=== PATIENT | male | born 1940 | race Caucasian/White ===

== ENCOUNTER 2017-09-15 19:56 | Inpatient (IN) | payer MEDICARE, OTHER ==
[2017-09-15] MEDS ORDERED: ACETAMINOPHEN 325 MG TAB PO (22:30)
[2017-09-15] MEDS ORDERED: NYSTATIN SUSP 5 ML CUP PO (22:30)
[2017-09-15] MEDS ORDERED: ONDANSETRON 4 MG INJ IV (22:30)
[2017-09-15] MEDS ORDERED: GENTAMICIN IV PER PHARMACY XX (22:30)
[2017-09-15] MEDS ORDERED: MAGNESIUM HYDROXIDE 30ML CUP PO (22:30)
[2017-09-15] MEDS ORDERED: GLUCAGON 1 MG INJ IM (22:30)
[2017-09-15] MEDS ORDERED: GLUCOSE GEL 15 GRAM TUBE BUCCAL (22:30)
[2017-09-15] MEDS ORDERED: DOCUSATE SODIUM 100 MG CAP PO (22:30)
[2017-09-15] MEDS ORDERED: DEXTROSE 50% 50 ML SYRINGE IV ×2 (22:30)
[2017-09-15] MEDS ORDERED: ALBUTEROL/IPRATROPIUM (NEB) 3 ML AMP HHN (22:30)
[2017-09-15] MEDS ORDERED: ZOLPIDEM 5 MG TAB PO (22:30)
[2017-09-15] MEDS ORDERED: GLUCOSE GEL 15 GRAM TUBE PO ×2 (22:30)
[2017-09-15] MEDS: SODIUM HYPOCHLORITE 0.125% 473 ML BTL IRR (23:20)
[2017-09-15] MEDS: FERROUS SULFATE (EC) 325 MG TAB PO (23:21)
[2017-09-15] MEDS: FOLIC ACID 1 MG TAB PO (23:21)
[2017-09-15] MEDS: DOCUSATE SODIUM 100 MG CAP PO (23:21)
[2017-09-15] MEDS: TAMSULOSIN (SR) 0.4 MG CAP PO (23:21)
[2017-09-15] MEDS: INSULIN GLARGINE [LANtus] 3 ML PEN SC (23:25)
[2017-09-15] MEDS: Insulin NOVOLOG SS MILD Algorithm (SS with meals and bedtime) SC (23:26)
[2017-09-15] MEDS ORDERED: BISACODYL 10 MG SUPP PR (23:30)
[2017-09-15] MEDS ORDERED: LACTULOSE 30ML CUP PO (23:30)
[2017-09-15] MEDS: TRIAMCINOLONE ACET 0.1% 15 GM CR TOP (23:33)
[2017-09-15] MEDS: BETAMETHASONE/CLOTRIMAZOLE 15 GM CR TOP (23:34)
[2017-09-16 01:40] LABS: ADD UMIC YES; UR ASCORBIC ACID 40 mg/dL (NEGATIVE); UR BACTERIA MODERATE /HPF (NONE SEEN); UR BILIRUBIN (Dip) NEGATIVE (NEGATIVE); UR BLOOD (Dip) NEGATIVE (NEGATIVE); UR CLARITY SLIGHTLY CLOUDY (CLEAR); UR COLOR YELLOW (YELLOW); UR GLUCOSE (Dip) NEGATIVE (NEGATIVE); UR KETONES (Dip) NEGATIVE (NEGATIVE); UR LEUKOCYTE ESTERASE (Dip) 3+ Leu/ul (NEGATIVE); UR MUCUS FEW /HPF (NONE SEEN); UR NITRITE (Dip) NEGATIVE (NEGATIVE); UR RBC 3 /HPF (0-5); UR SPECIFIC GRAVITY (Dip) 1.013 (1.003-1.030); UR SQUAMOUS EPITHELIAL CELL FEW /HPF (FEW); UR TOTAL PROTEIN (Dip) NEGATIVE (NEGATIVE); UR UROBILINOGEN (Dip) NEGATIVE (NEGATIVE); UR WBC 40 /HPF (0-5)
[2017-09-16] MEDS: ALBUTEROL/IPRATROPIUM (NEB) 3 ML AMP HHN ×4 (02:00→20:15)
[2017-09-16] MEDS: ACCUCHECK AT 2AM (Patients on SS coverage) XX (02:15)
[2017-09-16] MEDS: LEVOTHYROXINE 75 MCG TAB PO (06:32)
[2017-09-16] MEDS: PANTOPRAZOLE (EC) 40 MG TAB PO (06:32)
[2017-09-16 08:02] LABS: ADD MAN DIFF? NO
[2017-09-16 08:07] LABS: WHITE BLOOD COUNT 14.6 10^3/ul (4.8-10.8)
[2017-09-16 08:07] LABS: BASOPHIL # 0.1 10^3/ul (0.0-0.1); BASOPHILS % 0.4 % (0.0-2.0); EOSINOPHILS # 0.8 10^3/ul (0.0-0.5); EOSINOPHILS % 5.2 % (0.0-7.0); HEMATOCRIT 26.5 % (42.0-52.0); HEMOGLOBIN 8.4 g/dl (14.0-18.0); LYMPHOCYTES # 1.2 10^3/ul (0.8-2.9); LYMPHOCYTES % 7.9 % (15.0-51.0); MEAN CORPUSCULAR HEMOGLOBIN 28.5 pg (29.0-33.0); MEAN CORPUSCULAR HGB CONC 31.7 g/dl (32.0-37.0); MEAN CORPUSCULAR VOLUME 89.8 fl (82.0-101.0); MEAN PLATELET VOLUME 11.4 fl (7.4-10.4); MONOCYTE # 1.5 10^3/ul (0.3-0.9); NEUTROPHIL # 11.1 10^3/ul (1.6-7.5); NEUTROPHILS % 75.5 % (39.0-77.0); PLATELET COUNT 296 10^3/UL (140-415); RED BLOOD COUNT 2.95 10^6/ul (4.70-6.10)
[2017-09-16] MEDS: Insulin NOVOLOG SS MILD Algorithm (SS with meals and bedtime) SC ×4 (08:27→21:00)
[2017-09-16 08:28] LABS: ALANINE AMINOTRANSFERASE 50 IU/L (13-69); ALBUMIN 3.1 g/dl (3.3-4.9); ALBUMIN/GLOBULIN RATIO 0.81; ALKALINE PHOSPHATASE 115 IU/L (42-121); ANION GAP 13 (8-16); ASPARTATE AMINO TRANSFERASE 26 IU/L (15-46); BLOOD UREA NITROGEN 71 mg/dl (7-20); CALCIUM 10.1 mg/dl (8.4-10.2); CARBON DIOXIDE 25 mmol/L (21-31); CHLORIDE 105 mmol/L (97-110); CREATININE 2.12 mg/dl (0.61-1.24); GLUCOSE 157 mg/dl (70-220); POTASSIUM 4.5 mmol/L (3.5-5.1); SODIUM 138 mmol/L (135-144); TOTAL PROTEIN 6.9 g/dl (6.1-8.1)
[2017-09-16] MEDS: INSULIN ASPART [NOVOLOG] 3 ML PEN SC ×3 (08:28→17:35)
[2017-09-16] MEDS ORDERED: APIXABAN 5 MG TABLET PO (09:00)
[2017-09-16] MEDS: TRIAMCINOLONE ACET 0.1% 15 GM CR TOP ×2 (09:11→21:00)
[2017-09-16] MEDS: BETAMETHASONE/CLOTRIMAZOLE 15 GM CR TOP ×2 (09:11→22:20)
[2017-09-16] MEDS: MUPIROCIN 2% 22 GM OINT TOP (09:11)
[2017-09-16] MEDS: COLLAGENASE 30 GM TUBE TOP ×2 (09:12→22:20)
[2017-09-16] MEDS: MULTIVITAMINS THERAPEUTIC TAB PO (09:12)
[2017-09-16] MEDS: LINAGLIPTIN 5 MG TABLET PO (09:12)
[2017-09-16] MEDS: TAMSULOSIN (SR) 0.4 MG CAP PO ×2 (09:13→21:46)
[2017-09-16] MEDS: FERROUS SULFATE (EC) 325 MG TAB PO ×2 (09:13→21:43)
[2017-09-16] MEDS: HYDROCODONE/APAP (5/325) TAB PO (09:13)
[2017-09-16] MEDS: FINASTERIDE 5 MG TAB PO (09:13)
[2017-09-16] MEDS: DOCUSATE SODIUM 100 MG CAP PO ×2 (09:13→21:43)
[2017-09-16] MEDS: CITALOPRAM 20 MG TAB PO (09:13)
[2017-09-16] MEDS: ASCORBIC ACID 500 MG TAB PO (09:13)
[2017-09-16] MEDS: CLOPIDOGREL 75 MG TAB PO (09:13)
[2017-09-16] MEDS: CALAMINE 170 ML LOT TOP (09:14)
[2017-09-16] MEDS: SODIUM HYPOCHLORITE 0.125% 473 ML BTL IRR ×3 (09:20→22:21)
[2017-09-16] MEDS: DAPTOMYCIN 500 MG in SOD CHLORIDE 0.9% 100 ML IVPB (20:11)
[2017-09-16] MEDS: INSULIN GLARGINE [LANtus] 3 ML PEN SC (21:15)
[2017-09-16] MEDS: SENNA TAB PO (21:43)
[2017-09-16] MEDS: FOLIC ACID 1 MG TAB PO (21:43)
[2017-09-17] MEDS: ALBUTEROL/IPRATROPIUM (NEB) 3 ML AMP HHN ×4 (01:47→19:49)
[2017-09-17] MEDS: ACCUCHECK AT 2AM (Patients on SS coverage) XX (01:49)
[2017-09-17] MEDS: GENTAMICIN 80 MG/NS (PMX) 50 ML IVPB (03:18)
[2017-09-17] MEDS: PANTOPRAZOLE (EC) 40 MG TAB PO (06:38)
[2017-09-17] MEDS: LEVOTHYROXINE 75 MCG TAB PO (06:38)
[2017-09-17] MEDS: Insulin NOVOLOG SS MILD Algorithm (SS with meals and bedtime) SC ×4 (07:05→21:11)
[2017-09-17 07:32] LABS: ADD MAN DIFF? NO
[2017-09-17 07:40] LABS: WHITE BLOOD COUNT 14.9 10^3/ul (4.8-10.8)
[2017-09-17 07:40] LABS: ABNORMAL IP MESSAGE 1; BASOPHILS % 0.3 % (0.0-2.0); EOSINOPHILS # 0.6 10^3/ul (0.0-0.5); HEMATOCRIT 24.6 % (42.0-52.0); HEMOGLOBIN 7.8 g/dl (14.0-18.0); LYMPHOCYTES # 1.1 10^3/ul (0.8-2.9); LYMPHOCYTES % 7.6 % (15.0-51.0); MEAN CORPUSCULAR HEMOGLOBIN 28.4 pg (29.0-33.0); MEAN CORPUSCULAR HGB CONC 31.7 g/dl (32.0-37.0); MEAN CORPUSCULAR VOLUME 89.5 fl (82.0-101.0); MEAN PLATELET VOLUME 11.3 fl (7.4-10.4); MONOCYTE # 1.6 10^3/ul (0.3-0.9); MONOCYTES % 10.4 % (0.0-11.0); NEUTROPHIL # 11.5 10^3/ul (1.6-7.5); PLATELET COUNT 263 10^3/UL (140-415); POSITIVE DIFF @See below; RED BLOOD COUNT 2.75 10^6/ul (4.70-6.10); RED CELL DISTRIBUTION WIDTH 15.9 % (11.5-14.5)
[2017-09-17 08:05] LABS: ANION GAP 14 (8-16); BLOOD UREA NITROGEN 74 mg/dl (7-20); CALCIUM 9.5 mg/dl (8.4-10.2); CARBON DIOXIDE 23 mmol/L (21-31); CHLORIDE 105 mmol/L (97-110); CREATININE 2.08 mg/dl (0.61-1.24); GLUCOSE 121 mg/dl (70-220); SODIUM 137 mmol/L (135-144)
[2017-09-17 08:09] LABS: CREATINE KINASE 42 IU/L (23-200)
[2017-09-17 08:13] LABS: PHOSPHORUS 4.4 mg/dl (2.5-4.9)
[2017-09-17 08:13] LABS: MAGNESIUM 1.9 mg/dl (1.7-2.5)
[2017-09-17] MEDS: INSULIN ASPART [NOVOLOG] 3 ML PEN SC ×3 (08:45→17:58)
[2017-09-17] MEDS: SODIUM HYPOCHLORITE 0.125% 473 ML BTL IRR ×3 (09:32→21:13)
[2017-09-17] MEDS: DOCUSATE SODIUM 100 MG CAP PO ×2 (09:33→21:06)
[2017-09-17] MEDS: CITALOPRAM 20 MG TAB PO (09:33)
[2017-09-17] MEDS: LINAGLIPTIN 5 MG TABLET PO (09:33)
[2017-09-17] MEDS: CLOPIDOGREL 75 MG TAB PO (09:33)
[2017-09-17] MEDS: FINASTERIDE 5 MG TAB PO (09:34)
[2017-09-17] MEDS: FERROUS SULFATE (EC) 325 MG TAB PO ×2 (09:34→21:06)
[2017-09-17] MEDS: TAMSULOSIN (SR) 0.4 MG CAP PO ×2 (09:34→21:06)
[2017-09-17] MEDS: ASCORBIC ACID 500 MG TAB PO (09:34)
[2017-09-17] MEDS: MULTIVITAMINS THERAPEUTIC TAB PO (09:34)
[2017-09-17] MEDS: HYDROCODONE/APAP (5/325) TAB PO (09:35)
[2017-09-17] MEDS: TRIAMCINOLONE ACET 0.1% 15 GM CR TOP ×2 (09:35→21:12)
[2017-09-17] MEDS: BETAMETHASONE/CLOTRIMAZOLE 15 GM CR TOP ×2 (09:35→21:12)
[2017-09-17] MEDS: MUPIROCIN 2% 22 GM OINT TOP (09:35)
[2017-09-17] MEDS: COLLAGENASE 30 GM TUBE TOP ×2 (09:35→21:11)
[2017-09-17] MEDS: CALAMINE 170 ML LOT TOP (09:36)
[2017-09-17 10:28] LABS: IRON 15 ug/dl (35-150)
[2017-09-17 10:43] LABS: % IRON SATURATION 8 % SAT (22-52); TOTAL IRON BINDING CAPACITY 187 ug/dl (241-421)
[2017-09-17] MEDS: EPOETIN ALFA (NESRD) 3,000 UNITS/ML VIAL SC (10:50)
[2017-09-17] MEDS: GENTAMICIN 0.1% 15 GM OINT TOP ×2 (17:30→21:12)
[2017-09-17] MEDS: SENNA TAB PO (21:05)
[2017-09-17] MEDS: FOLIC ACID 1 MG TAB PO (21:06)
[2017-09-17] MEDS: L ACIDOPHIL/B LACTIS/B LONGUM CAPSULE PO (21:07)
[2017-09-17] MEDS: INSULIN GLARGINE [LANtus] 3 ML PEN SC (21:10)
[2017-09-17] MEDS: MEROPENEM 500MG/50 ML (PMX) 50 ML IVPB (21:11)
[2017-09-18] MEDS: ALBUTEROL/IPRATROPIUM (NEB) 3 ML AMP HHN ×4 (01:31→20:38)
[2017-09-18] MEDS: ACCUCHECK AT 2AM (Patients on SS coverage) XX (02:48)
[2017-09-18] MEDS: PANTOPRAZOLE (EC) 40 MG TAB PO (06:19)
[2017-09-18] MEDS: LEVOTHYROXINE 75 MCG TAB PO (06:19)
[2017-09-18] MEDS: Insulin NOVOLOG SS MILD Algorithm (SS with meals and bedtime) SC ×4 (07:05→21:00)
[2017-09-18] MEDS: INSULIN ASPART [NOVOLOG] 3 ML PEN SC ×3 (08:23→17:35)
[2017-09-18] MEDS: CALAMINE 170 ML LOT TOP (09:00)
[2017-09-18] MEDS: INFLUENZA VIRUS VACCINE 0.5 ML (DISPENSING) IM* (09:00)
[2017-09-18] MEDS: SODIUM HYPOCHLORITE 0.125% 473 ML BTL IRR ×3 (09:00→21:28)
[2017-09-18] MEDS: FERROUS SULFATE (EC) 325 MG TAB PO ×2 (10:11→21:07)
[2017-09-18] MEDS: CITALOPRAM 20 MG TAB PO (10:12)
[2017-09-18] MEDS: CLOPIDOGREL 75 MG TAB PO (10:12)
[2017-09-18] MEDS: MULTIVITAMINS THERAPEUTIC TAB PO (10:13)
[2017-09-18] MEDS: DOCUSATE SODIUM 100 MG CAP PO ×2 (10:13→21:07)
[2017-09-18] MEDS: L ACIDOPHIL/B LACTIS/B LONGUM CAPSULE PO ×2 (10:13→21:07)
[2017-09-18] MEDS: FINASTERIDE 5 MG TAB PO (10:13)
[2017-09-18] MEDS: LINAGLIPTIN 5 MG TABLET PO (10:14)
[2017-09-18] MEDS: MUPIROCIN 2% 22 GM OINT TOP (10:14)
[2017-09-18] MEDS: BETAMETHASONE/CLOTRIMAZOLE 15 GM CR TOP ×2 (10:14→21:00)
[2017-09-18] MEDS: TAMSULOSIN (SR) 0.4 MG CAP PO ×2 (10:14→21:07)
[2017-09-18] MEDS: ASCORBIC ACID 500 MG TAB PO (10:14)
[2017-09-18] MEDS: TRIAMCINOLONE ACET 0.1% 15 GM CR TOP ×2 (10:15→21:00)
[2017-09-18] MEDS: GENTAMICIN 0.1% 15 GM OINT TOP ×3 (10:15→21:00)
[2017-09-18] MEDS: COLLAGENASE 30 GM TUBE TOP (10:15)
[2017-09-18] MEDS: MEROPENEM 500MG/50 ML (PMX) 50 ML IVPB ×2 (10:16→21:06)
[2017-09-18] MEDS: DAPTOMYCIN 500 MG in SOD CHLORIDE 0.9% 100 ML IVPB (17:36)
[2017-09-18] MEDS: INSULIN GLARGINE [LANtus] 3 ML PEN SC (21:06)
[2017-09-18] MEDS: PERMETHRIN 5% 60 GM CR TOP (21:07)
[2017-09-18] MEDS: SENNA TAB PO (21:10)
[2017-09-18] MEDS: FOLIC ACID 1 MG TAB PO (21:10)
[2017-09-19] MEDS: ACCUCHECK AT 2AM (Patients on SS coverage) XX (02:00)
[2017-09-19] MEDS: ALBUTEROL/IPRATROPIUM (NEB) 3 ML AMP HHN ×4 (02:20→19:13)
[2017-09-19] MEDS: HYDROCODONE/APAP (5/325) TAB PO (04:14)
[2017-09-19] MEDS: PANTOPRAZOLE (EC) 40 MG TAB PO (06:26)
[2017-09-19] MEDS: LEVOTHYROXINE 75 MCG TAB PO (06:26)
[2017-09-19 08:17] LABS: ADD MAN DIFF? NO
[2017-09-19 08:20] LABS: WHITE BLOOD COUNT 12.4 10^3/ul (4.8-10.8)
[2017-09-19 08:20] LABS: BASOPHILS % 0.2 % (0.0-2.0); EOSINOPHILS # 0.7 10^3/ul (0.0-0.5); EOSINOPHILS % 5.4 % (0.0-7.0); HEMATOCRIT 25.7 % (42.0-52.0); HEMOGLOBIN 7.9 g/dl (14.0-18.0); LYMPHOCYTES # 1.1 10^3/ul (0.8-2.9); LYMPHOCYTES % 9.1 % (15.0-51.0); MEAN CORPUSCULAR HEMOGLOBIN 27.8 pg (29.0-33.0); MEAN CORPUSCULAR HGB CONC 30.7 g/dl (32.0-37.0); MEAN CORPUSCULAR VOLUME 90.5 fl (82.0-101.0); MEAN PLATELET VOLUME 11.5 fl (7.4-10.4); MONOCYTE # 1.3 10^3/ul (0.3-0.9); MONOCYTES % 10.5 % (0.0-11.0); NEUTROPHILS % 72.5 % (39.0-77.0); PLATELET COUNT 261 10^3/UL (140-415); RED BLOOD COUNT 2.84 10^6/ul (4.70-6.10); RED CELL DISTRIBUTION WIDTH 15.9 % (11.5-14.5)
[2017-09-19] MEDS: Insulin NOVOLOG SS MILD Algorithm (SS with meals and bedtime) SC ×4 (08:25→20:53)
[2017-09-19] MEDS: INSULIN ASPART [NOVOLOG] 3 ML PEN SC ×3 (08:26→17:32)
[2017-09-19] MEDS: MUPIROCIN 2% 22 GM OINT TOP (08:26)
[2017-09-19] MEDS: COLLAGENASE 30 GM TUBE TOP (08:27)
[2017-09-19] MEDS: BETAMETHASONE/CLOTRIMAZOLE 15 GM CR TOP ×2 (08:27→20:46)
[2017-09-19] MEDS: TRIAMCINOLONE ACET 0.1% 15 GM CR TOP ×2 (08:27→20:45)
[2017-09-19] MEDS: GENTAMICIN 0.1% 15 GM OINT TOP ×3 (08:27→20:45)
[2017-09-19] MEDS: MEROPENEM 500MG/50 ML (PMX) 50 ML IVPB ×2 (08:28→20:43)
[2017-09-19] MEDS: SODIUM HYPOCHLORITE 0.125% 473 ML BTL IRR ×3 (08:28→20:44)
[2017-09-19] MEDS: FERROUS SULFATE (EC) 325 MG TAB PO ×2 (08:29→20:42)
[2017-09-19] MEDS: MULTIVITAMINS THERAPEUTIC TAB PO (08:29)
[2017-09-19] MEDS: L ACIDOPHIL/B LACTIS/B LONGUM CAPSULE PO ×2 (08:29→20:42)
[2017-09-19] MEDS: FINASTERIDE 5 MG TAB PO (08:29)
[2017-09-19] MEDS: TAMSULOSIN (SR) 0.4 MG CAP PO ×2 (08:29→20:42)
[2017-09-19] MEDS: ASCORBIC ACID 500 MG TAB PO (08:29)
[2017-09-19] MEDS: CITALOPRAM 20 MG TAB PO (08:29)
[2017-09-19] MEDS: DOCUSATE SODIUM 100 MG CAP PO ×2 (08:29→20:42)
[2017-09-19] MEDS: LINAGLIPTIN 5 MG TABLET PO (08:30)
[2017-09-19] MEDS: CLOPIDOGREL 75 MG TAB PO (08:30)
[2017-09-19] MEDS: CALAMINE 170 ML LOT TOP (08:31)
[2017-09-19 08:43] LABS: PHOSPHORUS 4.2 mg/dl (2.5-4.9)
[2017-09-19 08:43] LABS: MAGNESIUM 1.9 mg/dl (1.7-2.5)
[2017-09-19 08:44] LABS: ANION GAP 15 (8-16); BLOOD UREA NITROGEN 71 mg/dl (7-20); CALCIUM 9.1 mg/dl (8.4-10.2); CARBON DIOXIDE 21 mmol/L (21-31); CHLORIDE 104 mmol/L (97-110); CREATININE 2.17 mg/dl (0.61-1.24); GLUCOSE 245 mg/dl (70-220); SODIUM 135 mmol/L (135-144)
[2017-09-19] MEDS: FOLIC ACID 1 MG TAB PO (20:42)
[2017-09-19] MEDS: SENNA TAB PO (20:42)
[2017-09-19] MEDS: PERMETHRIN 5% 60 GM CR TOP (20:44)
[2017-09-19] MEDS: INSULIN GLARGINE [LANtus] 3 ML PEN SC (20:53)
[2017-09-19] MEDS: hydrOXYzine HCL 25 MG TAB PO (23:02)
[2017-09-20] MEDS: ALBUTEROL/IPRATROPIUM (NEB) 3 ML AMP HHN ×4 (01:18→19:20)
[2017-09-20] MEDS: HYDROCODONE/APAP (5/325) TAB PO ×2 (01:56→18:08)
[2017-09-20] MEDS: ACCUCHECK AT 2AM (Patients on SS coverage) XX (01:57)
[2017-09-20] MEDS: LEVOTHYROXINE 75 MCG TAB PO (06:22)
[2017-09-20] MEDS: PANTOPRAZOLE (EC) 40 MG TAB PO (06:22)
[2017-09-20] MEDS: Insulin NOVOLOG SS MILD Algorithm (SS with meals and bedtime) SC ×4 (08:21→21:58)
[2017-09-20] MEDS: INSULIN ASPART [NOVOLOG] 3 ML PEN SC ×3 (08:22→18:03)
[2017-09-20] MEDS: MEROPENEM 500MG/50 ML (PMX) 50 ML IVPB ×2 (08:46→21:40)
[2017-09-20] MEDS: CALAMINE 170 ML LOT TOP (09:00)
[2017-09-20] MEDS: MULTIVITAMINS THERAPEUTIC TAB PO (09:09)
[2017-09-20] MEDS: FINASTERIDE 5 MG TAB PO (09:12)
[2017-09-20] MEDS: CITALOPRAM 20 MG TAB PO (09:12)
[2017-09-20] MEDS: LINAGLIPTIN 5 MG TABLET PO (09:12)
[2017-09-20] MEDS: ASCORBIC ACID 500 MG TAB PO (09:12)
[2017-09-20] MEDS: FERROUS SULFATE (EC) 325 MG TAB PO ×2 (09:12→21:43)
[2017-09-20] MEDS: TAMSULOSIN (SR) 0.4 MG CAP PO ×2 (09:12→21:43)
[2017-09-20] MEDS: DOCUSATE SODIUM 100 MG CAP PO ×2 (09:12→21:43)
[2017-09-20] MEDS: CLOPIDOGREL 75 MG TAB PO (09:13)
[2017-09-20] MEDS: COLLAGENASE 30 GM TUBE TOP (09:14)
[2017-09-20] MEDS: L ACIDOPHIL/B LACTIS/B LONGUM CAPSULE PO ×2 (09:14→21:37)
[2017-09-20] MEDS: GENTAMICIN 0.1% 15 GM OINT TOP ×3 (13:00→21:36)
[2017-09-20] MEDS: SODIUM HYPOCHLORITE 0.125% 473 ML BTL IRR ×3 (16:07→21:46)
[2017-09-20] MEDS: MUPIROCIN 2% 22 GM OINT TOP (16:15)
[2017-09-20] MEDS: BETAMETHASONE/CLOTRIMAZOLE 15 GM CR TOP ×2 (16:15→21:36)
[2017-09-20] MEDS: TRIAMCINOLONE ACET 0.1% 15 GM CR TOP ×2 (16:15→21:36)
[2017-09-20] MEDS: DAPTOMYCIN 500 MG in SOD CHLORIDE 0.9% 100 ML IVPB (18:03)
[2017-09-20] MEDS: FOLIC ACID 1 MG TAB PO (21:43)
[2017-09-20] MEDS: SENNA TAB PO (21:43)
[2017-09-20] MEDS: INSULIN GLARGINE [LANtus] 3 ML PEN SC (21:57)
[2017-09-20] MEDS: hydrOXYzine HCL 25 MG TAB PO (22:13)
[2017-09-21] MEDS: ACCUCHECK AT 2AM (Patients on SS coverage) XX (02:00)
[2017-09-21] MEDS: ALBUTEROL/IPRATROPIUM (NEB) 3 ML AMP HHN ×4 (02:45→19:53)
[2017-09-21] MEDS: hydrOXYzine HCL 25 MG TAB PO ×2 (03:57→17:49)
[2017-09-21] MEDS: PANTOPRAZOLE (EC) 40 MG TAB PO (05:54)
[2017-09-21] MEDS: LEVOTHYROXINE 75 MCG TAB PO (05:54)
[2017-09-21] MEDS: INSULIN ASPART [NOVOLOG] 3 ML PEN SC ×3 (08:15→17:35)
[2017-09-21] MEDS: Insulin NOVOLOG SS MILD Algorithm (SS with meals and bedtime) SC ×4 (08:16→21:00)
[2017-09-21] MEDS: CALAMINE 170 ML LOT TOP (09:45)
[2017-09-21] MEDS: MUPIROCIN 2% 22 GM OINT TOP (09:46)
[2017-09-21] MEDS: GENTAMICIN 0.1% 15 GM OINT TOP ×3 (09:46→21:54)
[2017-09-21] MEDS: BETAMETHASONE/CLOTRIMAZOLE 15 GM CR TOP ×2 (09:46→21:54)
[2017-09-21] MEDS: TRIAMCINOLONE ACET 0.1% 15 GM CR TOP ×2 (09:46→21:54)
[2017-09-21] MEDS: COLLAGENASE 30 GM TUBE TOP (09:46)
[2017-09-21] MEDS: LINAGLIPTIN 5 MG TABLET PO (09:47)
[2017-09-21] MEDS: DOCUSATE SODIUM 100 MG CAP PO ×2 (09:47→21:53)
[2017-09-21] MEDS: FINASTERIDE 5 MG TAB PO (09:47)
[2017-09-21] MEDS: TAMSULOSIN (SR) 0.4 MG CAP PO ×2 (09:47→21:53)
[2017-09-21] MEDS: L ACIDOPHIL/B LACTIS/B LONGUM CAPSULE PO ×2 (09:47→21:52)
[2017-09-21] MEDS: ASCORBIC ACID 500 MG TAB PO (09:47)
[2017-09-21] MEDS: MULTIVITAMINS THERAPEUTIC TAB PO (09:47)
[2017-09-21] MEDS: CLOPIDOGREL 75 MG TAB PO (09:47)
[2017-09-21] MEDS: MEROPENEM 500MG/50 ML (PMX) 50 ML IVPB ×2 (09:47→21:57)
[2017-09-21] MEDS: FERROUS SULFATE (EC) 325 MG TAB PO ×2 (09:48→21:53)
[2017-09-21] MEDS: CITALOPRAM 20 MG TAB PO (09:48)
[2017-09-21] MEDS: SODIUM HYPOCHLORITE 0.125% 473 ML BTL IRR ×3 (09:49→21:57)
[2017-09-21] MEDS: HYDROCODONE/APAP (5/325) TAB PO (17:49)
[2017-09-21] MEDS: SENNA TAB PO (21:53)
[2017-09-21] MEDS: FOLIC ACID 1 MG TAB PO (21:53)
[2017-09-21] MEDS: NYSTATIN 30 GM POWDER BTL TOP (21:53)
[2017-09-21] MEDS: INSULIN GLARGINE [LANtus] 3 ML PEN SC (21:59)
[2017-09-22] MEDS: ALBUTEROL/IPRATROPIUM (NEB) 3 ML AMP HHN ×4 (01:40→19:50)
[2017-09-22] MEDS: ACCUCHECK AT 2AM (Patients on SS coverage) XX (01:42)
[2017-09-22] MEDS: PANTOPRAZOLE (EC) 40 MG TAB PO (06:46)
[2017-09-22] MEDS: LEVOTHYROXINE 75 MCG TAB PO (06:46)
[2017-09-22 07:29] LABS: ADD MAN DIFF? NO
[2017-09-22 07:32] LABS: WHITE BLOOD COUNT 16.5 10^3/ul (4.8-10.8)
[2017-09-22 07:32] LABS: BASOPHIL # 0.1 10^3/ul (0.0-0.1); BASOPHILS % 0.4 % (0.0-2.0); EOSINOPHILS # 1.7 10^3/ul (0.0-0.5); EOSINOPHILS % 10.2 % (0.0-7.0); HEMATOCRIT 25.1 % (42.0-52.0); HEMOGLOBIN 7.8 g/dl (14.0-18.0); LYMPHOCYTES # 1.4 10^3/ul (0.8-2.9); LYMPHOCYTES % 8.3 % (15.0-51.0); MEAN CORPUSCULAR HEMOGLOBIN 28.1 pg (29.0-33.0); MEAN CORPUSCULAR HGB CONC 31.1 g/dl (32.0-37.0); MEAN CORPUSCULAR VOLUME 90.3 fl (82.0-101.0); MEAN PLATELET VOLUME 10.8 fl (7.4-10.4); MONOCYTE # 1.4 10^3/ul (0.3-0.9); MONOCYTES % 8.5 % (0.0-11.0); NEUTROPHIL # 11.6 10^3/ul (1.6-7.5); NEUTROPHILS % 70.5 % (39.0-77.0); PLATELET COUNT 291 10^3/UL (140-415); RED BLOOD COUNT 2.78 10^6/ul (4.70-6.10); RED CELL DISTRIBUTION WIDTH 15.8 % (11.5-14.5)
[2017-09-22 07:57] LABS: ANION GAP 13 (8-16); BLOOD UREA NITROGEN 65 mg/dl (7-20); CALCIUM 9.3 mg/dl (8.4-10.2); CARBON DIOXIDE 24 mmol/L (21-31); CHLORIDE 108 mmol/L (97-110); CREATININE 2.06 mg/dl (0.61-1.24); GLUCOSE 124 mg/dl (70-220); MAGNESIUM 2.1 mg/dl (1.7-2.5); POTASSIUM 5.2 mmol/L (3.5-5.1); SODIUM 140 mmol/L (135-144)
[2017-09-22] MEDS: INSULIN ASPART [NOVOLOG] 3 ML PEN SC ×3 (08:14→17:47)
[2017-09-22] MEDS: Insulin NOVOLOG SS MILD Algorithm (SS with meals and bedtime) SC ×4 (08:14→22:20)
[2017-09-22] MEDS: SODIUM HYPOCHLORITE 0.125% 473 ML BTL IRR ×3 (09:49→22:23)
[2017-09-22] MEDS: MEROPENEM 500MG/50 ML (PMX) 50 ML IVPB ×2 (09:50→22:20)
[2017-09-22] MEDS: COLLAGENASE 30 GM TUBE TOP (09:51)
[2017-09-22] MEDS: MUPIROCIN 2% 22 GM OINT TOP (09:51)
[2017-09-22] MEDS: TRIAMCINOLONE ACET 0.1% 15 GM CR TOP ×2 (09:51→22:24)
[2017-09-22] MEDS: GENTAMICIN 0.1% 15 GM OINT TOP ×3 (09:51→22:24)
[2017-09-22] MEDS: NYSTATIN 30 GM POWDER BTL TOP ×2 (09:51→22:25)
[2017-09-22] MEDS: TAMSULOSIN (SR) 0.4 MG CAP PO ×2 (09:52→22:22)
[2017-09-22] MEDS: MULTIVITAMINS THERAPEUTIC TAB PO (09:52)
[2017-09-22] MEDS: FINASTERIDE 5 MG TAB PO (09:52)
[2017-09-22] MEDS: BETAMETHASONE/CLOTRIMAZOLE 15 GM CR TOP ×2 (09:52→22:25)
[2017-09-22] MEDS: DOCUSATE SODIUM 100 MG CAP PO ×2 (09:52→22:22)
[2017-09-22] MEDS: L ACIDOPHIL/B LACTIS/B LONGUM CAPSULE PO ×2 (09:52→22:21)
[2017-09-22] MEDS: CITALOPRAM 20 MG TAB PO (09:52)
[2017-09-22] MEDS: CALAMINE 170 ML LOT TOP (09:52)
[2017-09-22] MEDS: HYDROCODONE/APAP (5/325) TAB PO (09:53)
[2017-09-22] MEDS: CLOPIDOGREL 75 MG TAB PO (09:53)
[2017-09-22] MEDS: FERROUS SULFATE (EC) 325 MG TAB PO ×2 (09:53→22:22)
[2017-09-22] MEDS: ASCORBIC ACID 500 MG TAB PO (09:53)
[2017-09-22] MEDS: LINAGLIPTIN 5 MG TABLET PO (09:53)
[2017-09-22] MEDS: hydrOXYzine HCL 25 MG TAB PO (09:53)
[2017-09-22] MEDS: DAPTOMYCIN 500 MG in SOD CHLORIDE 0.9% 100 ML IVPB (17:26)
[2017-09-22] MEDS: EPOETIN ALFA (NESRD) 3,000 UNITS/ML VIAL SC (17:27)
[2017-09-22] MEDS: SENNA TAB PO (22:20)
[2017-09-22] MEDS: FOLIC ACID 1 MG TAB PO (22:21)
[2017-09-22] MEDS: INSULIN GLARGINE [LANtus] 3 ML PEN SC (22:30)
[2017-09-23] MEDS: ACCUCHECK AT 2AM (Patients on SS coverage) XX (02:00)
[2017-09-23] MEDS: ALBUTEROL/IPRATROPIUM (NEB) 3 ML AMP HHN ×4 (02:50→20:02)
[2017-09-23] MEDS: LEVOTHYROXINE 75 MCG TAB PO (06:31)
[2017-09-23] MEDS: PANTOPRAZOLE (EC) 40 MG TAB PO (06:31)
[2017-09-23] MEDS: Insulin NOVOLOG SS MILD Algorithm (SS with meals and bedtime) SC ×4 (08:03→20:36)
[2017-09-23] MEDS: INSULIN ASPART [NOVOLOG] 3 ML PEN SC ×3 (08:04→17:47)
[2017-09-23 08:19] LABS: ANION GAP 14 (8-16); BLOOD UREA NITROGEN 63 mg/dl (7-20); CALCIUM 9.7 mg/dl (8.4-10.2); CARBON DIOXIDE 21 mmol/L (21-31); CHLORIDE 106 mmol/L (97-110); CREATININE 2.08 mg/dl (0.61-1.24); GLUCOSE 178 mg/dl (70-220); PHOSPHORUS 4.7 mg/dl (2.5-4.9); POTASSIUM 5.3 mmol/L (3.5-5.1); SODIUM 136 mmol/L (135-144)
[2017-09-23] MEDS: LINAGLIPTIN 5 MG TABLET PO (08:45)
[2017-09-23] MEDS: MULTIVITAMINS THERAPEUTIC TAB PO (08:45)
[2017-09-23] MEDS: CITALOPRAM 20 MG TAB PO (08:51)
[2017-09-23] MEDS: ASCORBIC ACID 500 MG TAB PO (08:51)
[2017-09-23] MEDS: DOCUSATE SODIUM 100 MG CAP PO ×2 (08:51→20:28)
[2017-09-23] MEDS: CLOPIDOGREL 75 MG TAB PO (08:51)
[2017-09-23] MEDS: FINASTERIDE 5 MG TAB PO (08:51)
[2017-09-23] MEDS: FERROUS SULFATE (EC) 325 MG TAB PO ×2 (08:51→20:28)
[2017-09-23] MEDS: TAMSULOSIN (SR) 0.4 MG CAP PO ×2 (08:51→20:27)
[2017-09-23] MEDS: COLLAGENASE 30 GM TUBE TOP (08:52)
[2017-09-23] MEDS: MUPIROCIN 2% 22 GM OINT TOP (08:52)
[2017-09-23] MEDS: CALAMINE 170 ML LOT TOP (08:52)
[2017-09-23] MEDS: MEROPENEM 500MG/50 ML (PMX) 50 ML IVPB ×2 (08:55→20:31)
[2017-09-23] MEDS: L ACIDOPHIL/B LACTIS/B LONGUM CAPSULE PO ×2 (08:56→20:27)
[2017-09-23] MEDS: NYSTATIN 30 GM POWDER BTL TOP ×2 (08:57→20:32)
[2017-09-23] MEDS: SODIUM HYPOCHLORITE 0.125% 473 ML BTL IRR ×3 (08:57→20:31)
[2017-09-23] MEDS: BETAMETHASONE/CLOTRIMAZOLE 15 GM CR TOP ×2 (08:58→20:32)
[2017-09-23] MEDS: TRIAMCINOLONE ACET 0.1% 15 GM CR TOP ×2 (08:58→20:32)
[2017-09-23] MEDS: GENTAMICIN 0.1% 15 GM OINT TOP ×3 (08:58→20:32)
[2017-09-23] MEDS: FOLIC ACID 1 MG TAB PO (20:28)
[2017-09-23] MEDS: SENNA TAB PO (20:28)
[2017-09-23] MEDS: PERMETHRIN 5% 60 GM CR TOP (20:32)
[2017-09-23] MEDS: INSULIN GLARGINE [LANtus] 3 ML PEN SC (20:35)
[2017-09-23 23:21] LABS: ADD UMIC YES; UR ASCORBIC ACID 40 mg/dL (NEGATIVE); UR BACTERIA FEW /HPF (NONE SEEN); UR BILIRUBIN (Dip) NEGATIVE (NEGATIVE); UR BLOOD (Dip) NEGATIVE (NEGATIVE); UR CLARITY SLIGHTLY CLOUDY (CLEAR); UR COLOR YELLOW (YELLOW); UR GLUCOSE (Dip) NEGATIVE (NEGATIVE); UR KETONES (Dip) NEGATIVE (NEGATIVE); UR LEUKOCYTE ESTERASE (Dip) 2+ Leu/ul (NEGATIVE); UR NITRITE (Dip) NEGATIVE (NEGATIVE); UR RBC 4 /HPF (0-5); UR SPECIFIC GRAVITY (Dip) 1.013 (1.003-1.030); UR TOTAL PROTEIN (Dip) NEGATIVE (NEGATIVE); UR UROBILINOGEN (Dip) NEGATIVE (NEGATIVE); UR WBC 20 /HPF (0-5)
[2017-09-24] MEDS: ALBUTEROL/IPRATROPIUM (NEB) 3 ML AMP HHN ×4 (01:19→19:37)
[2017-09-24] MEDS: ACCUCHECK AT 2AM (Patients on SS coverage) XX (02:00)
[2017-09-24] MEDS: HYDROCODONE/APAP (5/325) TAB PO ×2 (04:15→12:17)
[2017-09-24] MEDS: LEVOTHYROXINE 75 MCG TAB PO (06:32)
[2017-09-24] MEDS: PANTOPRAZOLE (EC) 40 MG TAB PO (06:32)
[2017-09-24 07:16] LABS: ADD MAN DIFF? NO
[2017-09-24 07:20] LABS: WHITE BLOOD COUNT 15.7 10^3/ul (4.8-10.8)
[2017-09-24 07:20] LABS: BASOPHIL # 0.1 10^3/ul (0.0-0.1); BASOPHILS % 0.4 % (0.0-2.0); EOSINOPHILS # 1.1 10^3/ul (0.0-0.5); EOSINOPHILS % 7.1 % (0.0-7.0); HEMATOCRIT 24.6 % (42.0-52.0); HEMOGLOBIN 7.7 g/dl (14.0-18.0); LYMPHOCYTES # 1.6 10^3/ul (0.8-2.9); LYMPHOCYTES % 10.1 % (15.0-51.0); MEAN CORPUSCULAR HEMOGLOBIN 28.5 pg (29.0-33.0); MEAN CORPUSCULAR HGB CONC 31.3 g/dl (32.0-37.0); MEAN CORPUSCULAR VOLUME 91.1 fl (82.0-101.0); MEAN PLATELET VOLUME 10.6 fl (7.4-10.4); MONOCYTE # 1.3 10^3/ul (0.3-0.9); MONOCYTES % 8.1 % (0.0-11.0); NEUTROPHIL # 11.3 10^3/ul (1.6-7.5); NEUTROPHILS % 71.8 % (39.0-77.0); PLATELET COUNT 273 10^3/UL (140-415); RED CELL DISTRIBUTION WIDTH 16.4 % (11.5-14.5)
[2017-09-24 07:40] LABS: CREATINE KINASE 29 IU/L (23-200)
[2017-09-24 07:42] LABS: ANION GAP 15 (8-16); BLOOD UREA NITROGEN 63 mg/dl (7-20); CALCIUM 9.2 mg/dl (8.4-10.2); CARBON DIOXIDE 22 mmol/L (21-31); CHLORIDE 109 mmol/L (97-110); CREATININE 1.78 mg/dl (0.61-1.24); GLUCOSE 179 mg/dl (70-220); PHOSPHORUS 4.1 mg/dl (2.5-4.9); SODIUM 140 mmol/L (135-144)
[2017-09-24 07:47] LABS: POTASSIUM 5.6 mmol/L (3.5-5.1)
[2017-09-24] MEDS: Insulin NOVOLOG SS MILD Algorithm (SS with meals and bedtime) SC ×4 (08:30→20:34)
[2017-09-24] MEDS: INSULIN ASPART [NOVOLOG] 3 ML PEN SC ×3 (08:31→17:37)
[2017-09-24] MEDS: MUPIROCIN 2% 22 GM OINT TOP (09:38)
[2017-09-24] MEDS: LINAGLIPTIN 5 MG TABLET PO (09:39)
[2017-09-24] MEDS: FERROUS SULFATE (EC) 325 MG TAB PO ×2 (09:39→20:33)
[2017-09-24] MEDS: CALAMINE 170 ML LOT TOP (09:39)
[2017-09-24] MEDS: TAMSULOSIN (SR) 0.4 MG CAP PO ×2 (09:39→20:33)
[2017-09-24] MEDS: COLLAGENASE 30 GM TUBE TOP (09:39)
[2017-09-24] MEDS: ASCORBIC ACID 500 MG TAB PO (09:40)
[2017-09-24] MEDS: DOCUSATE SODIUM 100 MG CAP PO ×2 (09:40→20:33)
[2017-09-24] MEDS: L ACIDOPHIL/B LACTIS/B LONGUM CAPSULE PO ×2 (09:40→20:33)
[2017-09-24] MEDS: MULTIVITAMINS THERAPEUTIC TAB PO (09:40)
[2017-09-24] MEDS: CITALOPRAM 20 MG TAB PO (09:40)
[2017-09-24] MEDS: hydrOXYzine HCL 25 MG TAB PO (09:40)
[2017-09-24] MEDS: FINASTERIDE 5 MG TAB PO (09:40)
[2017-09-24] MEDS: CLOPIDOGREL 75 MG TAB PO (09:40)
[2017-09-24] MEDS: MEROPENEM 500MG/50 ML (PMX) 50 ML IVPB ×2 (09:41→20:34)
[2017-09-24] MEDS: GENTAMICIN 0.1% 15 GM OINT TOP ×3 (09:44→20:35)
[2017-09-24] MEDS: TRIAMCINOLONE ACET 0.1% 15 GM CR TOP ×2 (09:44→20:35)
[2017-09-24] MEDS: SODIUM HYPOCHLORITE 0.125% 473 ML BTL IRR ×3 (09:45→20:34)
[2017-09-24] MEDS: NYSTATIN 30 GM POWDER BTL TOP ×2 (09:45→20:35)
[2017-09-24] MEDS: BETAMETHASONE/CLOTRIMAZOLE 15 GM CR TOP ×2 (09:46→20:35)
[2017-09-24] MEDS: EPOETIN ALFA (NESRD) 3,000 UNITS/ML VIAL SC (17:23)
[2017-09-24] MEDS: DAPTOMYCIN 500 MG in SOD CHLORIDE 0.9% 100 ML IVPB (17:25)
[2017-09-24] MEDS: FOLIC ACID 1 MG TAB PO (20:33)
[2017-09-24] MEDS: SENNA TAB PO (20:33)
[2017-09-24] MEDS: INSULIN GLARGINE [LANtus] 3 ML PEN SC (20:38)
[2017-09-25] MEDS: ALBUTEROL/IPRATROPIUM (NEB) 3 ML AMP HHN ×4 (01:59→20:15)
[2017-09-25] MEDS: ACCUCHECK AT 2AM (Patients on SS coverage) XX (02:00)
[2017-09-25] MEDS: LEVOTHYROXINE 75 MCG TAB PO (06:39)
[2017-09-25] MEDS: PANTOPRAZOLE (EC) 40 MG TAB PO (06:39)
[2017-09-25 07:49] LABS: ANION GAP 12 (8-16); BLOOD UREA NITROGEN 53 mg/dl (7-20); CALCIUM 9.4 mg/dl (8.4-10.2); CARBON DIOXIDE 22 mmol/L (21-31); CHLORIDE 109 mmol/L (97-110); CREATININE 1.65 mg/dl (0.61-1.24); GLUCOSE 114 mg/dl (70-220); MAGNESIUM 1.8 mg/dl (1.7-2.5); PHOSPHORUS 4.4 mg/dl (2.5-4.9); SODIUM 138 mmol/L (135-144)
[2017-09-25] MEDS: Insulin NOVOLOG SS MILD Algorithm (SS with meals and bedtime) SC ×4 (08:48→21:00)
[2017-09-25] MEDS: INSULIN ASPART [NOVOLOG] 3 ML PEN SC ×3 (08:49→18:12)
[2017-09-25] MEDS: SODIUM HYPOCHLORITE 0.125% 473 ML BTL IRR ×3 (08:50→21:23)
[2017-09-25] MEDS: CITALOPRAM 20 MG TAB PO (08:52)
[2017-09-25] MEDS: FINASTERIDE 5 MG TAB PO (08:52)
[2017-09-25] MEDS: CLOPIDOGREL 75 MG TAB PO (08:52)
[2017-09-25] MEDS: BETAMETHASONE/CLOTRIMAZOLE 15 GM CR TOP ×2 (08:53→21:25)
[2017-09-25] MEDS: ASCORBIC ACID 500 MG TAB PO (08:53)
[2017-09-25] MEDS: MUPIROCIN 2% 22 GM OINT TOP (08:53)
[2017-09-25] MEDS: LINAGLIPTIN 5 MG TABLET PO (08:53)
[2017-09-25] MEDS: MULTIVITAMINS THERAPEUTIC TAB PO (08:53)
[2017-09-25] MEDS: FERROUS SULFATE (EC) 325 MG TAB PO ×2 (08:53→21:21)
[2017-09-25] MEDS: TAMSULOSIN (SR) 0.4 MG CAP PO ×2 (08:53→21:21)
[2017-09-25] MEDS: DOCUSATE SODIUM 100 MG CAP PO ×2 (08:53→21:21)
[2017-09-25] MEDS: TRIAMCINOLONE ACET 0.1% 15 GM CR TOP ×2 (08:53→21:26)
[2017-09-25] MEDS: GENTAMICIN 0.1% 15 GM OINT TOP ×3 (08:54→21:24)
[2017-09-25] MEDS: CALAMINE 170 ML LOT TOP (08:54)
[2017-09-25] MEDS: NYSTATIN 30 GM POWDER BTL TOP ×2 (08:56→21:24)
[2017-09-25] MEDS: MEROPENEM 500MG/50 ML (PMX) 50 ML IVPB ×2 (09:00→21:21)
[2017-09-25] MEDS: L ACIDOPHIL/B LACTIS/B LONGUM CAPSULE PO ×2 (09:00→21:21)
[2017-09-25] MEDS: COLLAGENASE 30 GM TUBE TOP (18:09)
[2017-09-25] MEDS: DAPTOMYCIN 500 MG in SOD CHLORIDE 0.9% 100 ML IVPB (18:55)
[2017-09-25] MEDS: SENNA TAB PO (21:21)
[2017-09-25] MEDS: FOLIC ACID 1 MG TAB PO (21:21)
[2017-09-25] MEDS: INSULIN GLARGINE [LANtus] 3 ML PEN SC (21:46)
[2017-09-26] MEDS: ALBUTEROL/IPRATROPIUM (NEB) 3 ML AMP HHN ×4 (01:49→19:36)
[2017-09-26] MEDS: ACCUCHECK AT 2AM (Patients on SS coverage) XX (02:00)
[2017-09-26] MEDS: PANTOPRAZOLE (EC) 40 MG TAB PO (06:24)
[2017-09-26] MEDS: LEVOTHYROXINE 75 MCG TAB PO (06:24)
[2017-09-26] MEDS: Insulin NOVOLOG SS MILD Algorithm (SS with meals and bedtime) SC ×4 (07:05→21:00)
[2017-09-26] MEDS: INSULIN ASPART [NOVOLOG] 3 ML PEN SC ×3 (08:21→17:55)
[2017-09-26] MEDS: COLLAGENASE 30 GM TUBE TOP ×2 (09:00→09:14)
[2017-09-26] MEDS: MUPIROCIN 2% 22 GM OINT TOP ×2 (09:00→09:15)
[2017-09-26] MEDS: SODIUM HYPOCHLORITE 0.125% 473 ML BTL IRR ×5 (09:00→21:18)
[2017-09-26] MEDS: GENTAMICIN 0.1% 15 GM OINT TOP ×6 (09:00→21:16)
[2017-09-26] MEDS: TRIAMCINOLONE ACET 0.1% 15 GM CR TOP ×2 (09:12→21:19)
[2017-09-26] MEDS: CALAMINE 170 ML LOT TOP (09:12)
[2017-09-26] MEDS: HYDROCORTISONE 1% 28.35 GM OINT TOP (09:13)
[2017-09-26] MEDS: NYSTATIN 30 GM POWDER BTL TOP ×2 (09:14→21:18)
[2017-09-26] MEDS: BETAMETHASONE/CLOTRIMAZOLE 15 GM CR TOP ×2 (09:14→21:19)
[2017-09-26] MEDS: MULTIVITAMINS THERAPEUTIC TAB PO (09:16)
[2017-09-26] MEDS: ASCORBIC ACID 500 MG TAB PO (09:16)
[2017-09-26] MEDS: LINAGLIPTIN 5 MG TABLET PO (09:16)
[2017-09-26] MEDS: FINASTERIDE 5 MG TAB PO (09:17)
[2017-09-26] MEDS: CLOPIDOGREL 75 MG TAB PO (09:17)
[2017-09-26] MEDS: TAMSULOSIN (SR) 0.4 MG CAP PO ×2 (09:17→21:15)
[2017-09-26] MEDS: L ACIDOPHIL/B LACTIS/B LONGUM CAPSULE PO ×2 (09:17→21:31)
[2017-09-26] MEDS: FERROUS SULFATE (EC) 325 MG TAB PO ×2 (09:17→21:15)
[2017-09-26] MEDS: CITALOPRAM 20 MG TAB PO (09:18)
[2017-09-26] MEDS: DOCUSATE SODIUM 100 MG CAP PO ×2 (09:18→21:14)
[2017-09-26] MEDS: MEROPENEM 500MG/50 ML (PMX) 50 ML IVPB ×2 (09:19→21:14)
[2017-09-26] MEDS: EPOETIN ALFA (NESRD) 3,000 UNITS/ML VIAL SC (17:56)
[2017-09-26] MEDS: DAPTOMYCIN 500 MG in SOD CHLORIDE 0.9% 100 ML IVPB (17:57)
[2017-09-26] MEDS: INSULIN GLARGINE [LANtus] 3 ML PEN SC (21:14)
[2017-09-26] MEDS: SENNA TAB PO (21:15)
[2017-09-26] MEDS: FOLIC ACID 1 MG TAB PO (21:16)
[2017-09-27] MEDS: HYDROCODONE/APAP (5/325) TAB PO (01:04)
[2017-09-27] MEDS: hydrOXYzine HCL 25 MG TAB PO (01:04)
[2017-09-27] MEDS: ALBUTEROL/IPRATROPIUM (NEB) 3 ML AMP HHN ×4 (01:55→19:37)
[2017-09-27] MEDS: ACCUCHECK AT 2AM (Patients on SS coverage) XX (02:00)
[2017-09-27] MEDS: LEVOTHYROXINE 75 MCG TAB PO (06:25)
[2017-09-27] MEDS: PANTOPRAZOLE (EC) 40 MG TAB PO (06:25)
[2017-09-27] MEDS: Insulin NOVOLOG SS MILD Algorithm (SS with meals and bedtime) SC ×4 (07:05→21:00)
[2017-09-27 07:38] LABS: ADD MAN DIFF? NO
[2017-09-27 07:41] LABS: WHITE BLOOD COUNT 13.4 10^3/ul (4.8-10.8)
[2017-09-27 07:41] LABS: BASOPHIL # 0.1 10^3/ul (0.0-0.1); BASOPHILS % 0.5 % (0.0-2.0); EOSINOPHILS # 1.2 10^3/ul (0.0-0.5); EOSINOPHILS % 9.2 % (0.0-7.0); HEMATOCRIT 26.3 % (42.0-52.0); LYMPHOCYTES # 1.6 10^3/ul (0.8-2.9); LYMPHOCYTES % 11.7 % (15.0-51.0); MEAN CORPUSCULAR HEMOGLOBIN 28.4 pg (29.0-33.0); MEAN CORPUSCULAR HGB CONC 30.4 g/dl (32.0-37.0); MEAN CORPUSCULAR VOLUME 93.3 fl (82.0-101.0); MEAN PLATELET VOLUME 10.5 fl (7.4-10.4); MONOCYTE # 1.2 10^3/ul (0.3-0.9); MONOCYTES % 8.9 % (0.0-11.0); NEUTROPHIL # 9.1 10^3/ul (1.6-7.5); NEUTROPHILS % 68.2 % (39.0-77.0); PLATELET COUNT 290 10^3/UL (140-415); RED BLOOD COUNT 2.82 10^6/ul (4.70-6.10); RED CELL DISTRIBUTION WIDTH 16.8 % (11.5-14.5)
[2017-09-27] MEDS: INSULIN ASPART [NOVOLOG] 3 ML PEN SC ×3 (07:53→17:54)
[2017-09-27 08:03] LABS: ANION GAP 11 (8-16); BLOOD UREA NITROGEN 45 mg/dl (7-20); CALCIUM 9.5 mg/dl (8.4-10.2); CARBON DIOXIDE 22 mmol/L (21-31); CHLORIDE 112 mmol/L (97-110); CREATININE 1.64 mg/dl (0.61-1.24); GLUCOSE 111 mg/dl (70-220); SODIUM 140 mmol/L (135-144)
[2017-09-27 08:05] LABS: PHOSPHORUS 4.1 mg/dl (2.5-4.9)
[2017-09-27 08:05] LABS: MAGNESIUM 1.8 mg/dl (1.7-2.5)
[2017-09-27] MEDS: MEROPENEM 500MG/50 ML (PMX) 50 ML IVPB ×2 (08:58→21:00)
[2017-09-27] MEDS: CITALOPRAM 20 MG TAB PO (09:02)
[2017-09-27] MEDS: FERROUS SULFATE (EC) 325 MG TAB PO ×2 (09:03→21:00)
[2017-09-27] MEDS: DOCUSATE SODIUM 100 MG CAP PO ×2 (09:03→21:00)
[2017-09-27] MEDS: FINASTERIDE 5 MG TAB PO (09:04)
[2017-09-27] MEDS: L ACIDOPHIL/B LACTIS/B LONGUM CAPSULE PO ×2 (09:04→22:58)
[2017-09-27] MEDS: CLOPIDOGREL 75 MG TAB PO (09:04)
[2017-09-27] MEDS: ASCORBIC ACID 500 MG TAB PO (09:05)
[2017-09-27] MEDS: LINAGLIPTIN 5 MG TABLET PO (09:05)
[2017-09-27] MEDS: MULTIVITAMINS THERAPEUTIC TAB PO (09:05)
[2017-09-27] MEDS: CALAMINE 170 ML LOT TOP (09:08)
[2017-09-27] MEDS: MUPIROCIN 2% 22 GM OINT TOP (09:08)
[2017-09-27] MEDS: GENTAMICIN 0.1% 15 GM OINT TOP ×4 (09:09→21:05)
[2017-09-27] MEDS: COLLAGENASE 30 GM TUBE TOP (09:09)
[2017-09-27] MEDS: NYSTATIN 30 GM POWDER BTL TOP ×2 (09:09→21:05)
[2017-09-27] MEDS: TRIAMCINOLONE ACET 0.1% 15 GM CR TOP ×2 (09:10→21:05)
[2017-09-27] MEDS: BETAMETHASONE/CLOTRIMAZOLE 15 GM CR TOP ×2 (09:10→21:06)
[2017-09-27] MEDS: SODIUM HYPOCHLORITE 0.125% 473 ML BTL IRR ×3 (09:11→21:24)
[2017-09-27] MEDS: TAMSULOSIN (SR) 0.4 MG CAP PO ×2 (09:15→21:00)
[2017-09-27] MEDS: DAPTOMYCIN 500 MG in SOD CHLORIDE 0.9% 100 ML IVPB (17:53)
[2017-09-27] MEDS: SENNA TAB PO (21:00)
[2017-09-27] MEDS: FOLIC ACID 1 MG TAB PO (21:00)
[2017-09-27] MEDS: INSULIN GLARGINE [LANtus] 3 ML PEN SC (21:23)
[2017-09-28] MEDS: ALBUTEROL/IPRATROPIUM (NEB) 3 ML AMP HHN ×2 (01:32→07:51)
[2017-09-28] MEDS: ACCUCHECK AT 2AM (Patients on SS coverage) XX (02:00)
[2017-09-28] MEDS: PANTOPRAZOLE (EC) 40 MG TAB PO (06:14)
[2017-09-28] MEDS: LEVOTHYROXINE 75 MCG TAB PO (06:14)
[2017-09-28] MEDS: hydrOXYzine HCL 25 MG TAB PO (06:14)
[2017-09-28] MEDS: Insulin NOVOLOG SS MILD Algorithm (SS with meals and bedtime) SC ×4 (08:48→20:33)
[2017-09-28] MEDS: INSULIN ASPART [NOVOLOG] 3 ML PEN SC ×3 (08:49→17:58)
[2017-09-28] MEDS: DOCUSATE SODIUM 100 MG CAP PO ×2 (08:50→20:31)
[2017-09-28] MEDS: MEROPENEM 500MG/50 ML (PMX) 50 ML IVPB ×2 (08:50→20:30)
[2017-09-28] MEDS: FINASTERIDE 5 MG TAB PO (08:51)
[2017-09-28] MEDS: LINAGLIPTIN 5 MG TABLET PO (08:51)
[2017-09-28] MEDS: CITALOPRAM 20 MG TAB PO (08:51)
[2017-09-28] MEDS: FERROUS SULFATE (EC) 325 MG TAB PO ×2 (08:51→20:31)
[2017-09-28] MEDS: CLOPIDOGREL 75 MG TAB PO (08:51)
[2017-09-28] MEDS: MULTIVITAMINS THERAPEUTIC TAB PO (08:51)
[2017-09-28] MEDS: L ACIDOPHIL/B LACTIS/B LONGUM CAPSULE PO ×2 (08:51→20:34)
[2017-09-28] MEDS: ASCORBIC ACID 500 MG TAB PO (08:51)
[2017-09-28] MEDS: TAMSULOSIN (SR) 0.4 MG CAP PO ×2 (08:56→20:31)
[2017-09-28] MEDS: SODIUM HYPOCHLORITE 0.125% 473 ML BTL IRR ×3 (12:55→20:32)
[2017-09-28] MEDS: GENTAMICIN 0.1% 15 GM OINT TOP ×4 (12:56→20:33)
[2017-09-28] MEDS: MUPIROCIN 2% 22 GM OINT TOP (12:56)
[2017-09-28] MEDS: CALAMINE 170 ML LOT TOP (12:56)
[2017-09-28] MEDS: TRIAMCINOLONE ACET 0.1% 15 GM CR TOP (12:57)
[2017-09-28] MEDS: NYSTATIN 30 GM POWDER BTL TOP ×2 (12:58→20:33)
[2017-09-28] MEDS: COLLAGENASE 30 GM TUBE TOP (12:58)
[2017-09-28] MEDS: BETAMETHASONE/CLOTRIMAZOLE 15 GM CR TOP ×2 (12:58→20:32)
[2017-09-28] MEDS: DAPTOMYCIN 500 MG in SOD CHLORIDE 0.9% 100 ML IVPB (18:09)
[2017-09-28] MEDS: INSULIN GLARGINE [LANtus] 3 ML PEN SC (20:29)
[2017-09-28] MEDS: SENNA TAB PO (20:30)
[2017-09-28] MEDS: FOLIC ACID 1 MG TAB PO (20:31)
[2017-09-29] MEDS: hydrOXYzine HCL 25 MG TAB PO (01:40)
[2017-09-29] MEDS: ACCUCHECK AT 2AM (Patients on SS coverage) XX (02:00)
[2017-09-29] MEDS: PANTOPRAZOLE (EC) 40 MG TAB PO (06:08)
[2017-09-29] MEDS: LEVOTHYROXINE 75 MCG TAB PO (06:08)
[2017-09-29] MEDS: Insulin NOVOLOG SS MILD Algorithm (SS with meals and bedtime) SC ×4 (07:58→21:00)
[2017-09-29] MEDS: CITALOPRAM 20 MG TAB PO (07:59)
[2017-09-29] MEDS: INSULIN ASPART [NOVOLOG] 3 ML PEN SC ×3 (07:59→18:11)
[2017-09-29] MEDS: DOCUSATE SODIUM 100 MG CAP PO ×2 (08:00→20:27)
[2017-09-29] MEDS: FINASTERIDE 5 MG TAB PO (08:01)
[2017-09-29] MEDS: FERROUS SULFATE (EC) 325 MG TAB PO ×2 (08:01→20:27)
[2017-09-29] MEDS: ASCORBIC ACID 500 MG TAB PO (08:02)
[2017-09-29] MEDS: LINAGLIPTIN 5 MG TABLET PO (08:02)
[2017-09-29] MEDS: CLOPIDOGREL 75 MG TAB PO (08:03)
[2017-09-29] MEDS: MEROPENEM 500MG/50 ML (PMX) 50 ML IVPB ×2 (08:04→20:26)
[2017-09-29] MEDS: TAMSULOSIN (SR) 0.4 MG CAP PO ×2 (08:04→20:27)
[2017-09-29] MEDS: MULTIVITAMINS THERAPEUTIC TAB PO (08:05)
[2017-09-29] MEDS: MUPIROCIN 2% 22 GM OINT TOP (09:00)
[2017-09-29] MEDS: L ACIDOPHIL/B LACTIS/B LONGUM CAPSULE PO ×2 (09:37→21:02)
[2017-09-29] MEDS: HYDROCODONE/APAP (5/325) TAB PO ×2 (11:55→18:29)
[2017-09-29] MEDS: BETAMETHASONE/CLOTRIMAZOLE 15 GM CR TOP ×2 (11:56→20:30)
[2017-09-29] MEDS: COLLAGENASE 30 GM TUBE TOP (11:57)
[2017-09-29] MEDS: NYSTATIN 30 GM POWDER BTL TOP ×2 (11:57→20:30)
[2017-09-29] MEDS: GENTAMICIN 0.1% 15 GM OINT TOP (11:59)
[2017-09-29] MEDS: SODIUM HYPOCHLORITE 0.125% 473 ML BTL IRR ×3 (12:03→21:00)
[2017-09-29] MEDS: EPOETIN ALFA (NESRD) 3,000 UNITS/ML VIAL SC (17:06)
[2017-09-29] MEDS: DAPTOMYCIN 500 MG in SOD CHLORIDE 0.9% 100 ML IVPB (18:11)
[2017-09-29] MEDS ORDERED: ONDANSETRON 4 MG INJ IV (18:30)
[2017-09-29] MEDS: INSULIN GLARGINE [LANtus] 3 ML PEN SC (20:00)
[2017-09-29] MEDS: SENNA TAB PO (20:27)
[2017-09-29] MEDS: FOLIC ACID 1 MG TAB PO (20:27)
[2017-09-30] MEDS: ACCUCHECK AT 2AM (Patients on SS coverage) XX (02:00)
[2017-09-30] MEDS: PANTOPRAZOLE (EC) 40 MG TAB PO (05:52)
[2017-09-30] MEDS: LEVOTHYROXINE 75 MCG TAB PO (05:52)
[2017-09-30 07:37] LABS: ADD MAN DIFF? NO
[2017-09-30 07:41] LABS: BASOPHIL # 0.1 10^3/ul (0.0-0.1); BASOPHILS % 0.5 % (0.0-2.0); EOSINOPHILS % 7.8 % (0.0-7.0); HEMATOCRIT 28.2 % (42.0-52.0); HEMOGLOBIN 8.7 g/dl (14.0-18.0); LYMPHOCYTES # 1.2 10^3/ul (0.8-2.9); MEAN CORPUSCULAR HEMOGLOBIN 28.9 pg (29.0-33.0); MEAN CORPUSCULAR HGB CONC 30.9 g/dl (32.0-37.0); MEAN CORPUSCULAR VOLUME 93.7 fl (82.0-101.0); MEAN PLATELET VOLUME 10.3 fl (7.4-10.4); MONOCYTES % 7.6 % (0.0-11.0); NEUTROPHIL # 9.8 10^3/ul (1.6-7.5); NEUTROPHILS % 74.2 % (39.0-77.0); PLATELET COUNT 280 10^3/UL (140-415); RED BLOOD COUNT 3.01 10^6/ul (4.70-6.10); RED CELL DISTRIBUTION WIDTH 17.2 % (11.5-14.5)
[2017-09-30 07:41] LABS: WHITE BLOOD COUNT 13.2 10^3/ul (4.8-10.8)
[2017-09-30 07:57] LABS: MAGNESIUM 1.7 mg/dl (1.7-2.5)
[2017-09-30 07:59] LABS: ANION GAP 15 (8-16); BLOOD UREA NITROGEN 44 mg/dl (7-20); CALCIUM 9.6 mg/dl (8.4-10.2); CARBON DIOXIDE 20 mmol/L (21-31); CHLORIDE 111 mmol/L (97-110); CREATININE 1.52 mg/dl (0.61-1.24); GLUCOSE 182 mg/dl (70-220); POTASSIUM 5.2 mmol/L (3.5-5.1); SODIUM 141 mmol/L (135-144)
[2017-09-30] MEDS: Insulin NOVOLOG SS MILD Algorithm (SS with meals and bedtime) SC ×4 (08:39→21:30)
[2017-09-30] MEDS: INSULIN ASPART [NOVOLOG] 3 ML PEN SC ×3 (08:40→17:48)
[2017-09-30] MEDS: TAMSULOSIN (SR) 0.4 MG CAP PO ×2 (09:32→21:08)
[2017-09-30] MEDS: MEROPENEM 500MG/50 ML (PMX) 50 ML IVPB (09:32)
[2017-09-30] MEDS: COLLAGENASE 30 GM TUBE TOP (09:32)
[2017-09-30] MEDS: CITALOPRAM 20 MG TAB PO (09:33)
[2017-09-30] MEDS: FERROUS SULFATE (EC) 325 MG TAB PO ×2 (09:33→21:07)
[2017-09-30] MEDS: L ACIDOPHIL/B LACTIS/B LONGUM CAPSULE PO ×2 (09:33→21:07)
[2017-09-30] MEDS: DOCUSATE SODIUM 100 MG CAP PO ×2 (09:33→21:08)
[2017-09-30] MEDS: MULTIVITAMINS THERAPEUTIC TAB PO (09:33)
[2017-09-30] MEDS: ASCORBIC ACID 500 MG TAB PO (09:33)
[2017-09-30] MEDS: FINASTERIDE 5 MG TAB PO (09:33)
[2017-09-30] MEDS: CLOPIDOGREL 75 MG TAB PO (09:33)
[2017-09-30] MEDS: SODIUM HYPOCHLORITE 0.125% 473 ML BTL IRR ×3 (09:34→21:10)
[2017-09-30] MEDS: LINAGLIPTIN 5 MG TABLET PO (09:34)
[2017-09-30] MEDS: hydrOXYzine HCL 25 MG TAB PO (09:34)
[2017-09-30] MEDS: NYSTATIN 30 GM POWDER BTL TOP ×2 (09:35→21:09)
[2017-09-30] MEDS: GENTAMICIN 0.1% 15 GM OINT TOP (09:35)
[2017-09-30] MEDS: BETAMETHASONE/CLOTRIMAZOLE 15 GM CR TOP ×2 (09:36→21:09)
[2017-09-30] MEDS: MUPIROCIN 2% 22 GM OINT TOP (09:38)
[2017-09-30] MEDS: HYDROCODONE/APAP (5/325) TAB PO (14:19)
[2017-09-30] MEDS: SENNA TAB PO (21:07)
[2017-09-30] MEDS: FOLIC ACID 1 MG TAB PO (21:08)
[2017-09-30] MEDS: INSULIN GLARGINE [LANtus] 3 ML PEN SC (21:31)
[2017-10-01] MEDS: ACCUCHECK AT 2AM (Patients on SS coverage) XX (02:17)
[2017-10-01] MEDS: PANTOPRAZOLE (EC) 40 MG TAB PO (06:10)
[2017-10-01] MEDS: LEVOTHYROXINE 75 MCG TAB PO (06:10)
[2017-10-01 07:19] LABS: ADD MAN DIFF? NO
[2017-10-01 07:25] LABS: WHITE BLOOD COUNT 13.6 10^3/ul (4.8-10.8)
[2017-10-01 07:25] LABS: BASOPHIL # 0.1 10^3/ul (0.0-0.1); BASOPHILS % 0.4 % (0.0-2.0); EOSINOPHILS # 0.8 10^3/ul (0.0-0.5); EOSINOPHILS % 5.9 % (0.0-7.0); HEMATOCRIT 27.8 % (42.0-52.0); HEMOGLOBIN 8.5 g/dl (14.0-18.0); LYMPHOCYTES # 1.3 10^3/ul (0.8-2.9); LYMPHOCYTES % 9.8 % (15.0-51.0); MEAN CORPUSCULAR HEMOGLOBIN 28.7 pg (29.0-33.0); MEAN CORPUSCULAR HGB CONC 30.6 g/dl (32.0-37.0); MEAN CORPUSCULAR VOLUME 93.9 fl (82.0-101.0); MEAN PLATELET VOLUME 10.5 fl (7.4-10.4); MONOCYTE # 1.1 10^3/ul (0.3-0.9); MONOCYTES % 7.9 % (0.0-11.0); NEUTROPHIL # 10.3 10^3/ul (1.6-7.5); NEUTROPHILS % 75.3 % (39.0-77.0); PLATELET COUNT 283 10^3/UL (140-415); RED BLOOD COUNT 2.96 10^6/ul (4.70-6.10); RED CELL DISTRIBUTION WIDTH 17.2 % (11.5-14.5)
[2017-10-01 07:45] LABS: ANION GAP 15 (8-16); BLOOD UREA NITROGEN 47 mg/dl (7-20); CALCIUM 9.9 mg/dl (8.4-10.2); CARBON DIOXIDE 20 mmol/L (21-31); CHLORIDE 110 mmol/L (97-110); CREATININE 1.61 mg/dl (0.61-1.24); GLUCOSE 168 mg/dl (70-220); MAGNESIUM 1.8 mg/dl (1.7-2.5); PHOSPHORUS 4.4 mg/dl (2.5-4.9); POTASSIUM 5.4 mmol/L (3.5-5.1); SODIUM 140 mmol/L (135-144)
[2017-10-01] MEDS: Insulin NOVOLOG SS MILD Algorithm (SS with meals and bedtime) SC ×2 (08:42→13:14)
[2017-10-01] MEDS: INSULIN ASPART [NOVOLOG] 3 ML PEN SC ×2 (08:42→13:13)
[2017-10-01] MEDS: COLLAGENASE 30 GM TUBE TOP (09:00)
[2017-10-01] MEDS: L ACIDOPHIL/B LACTIS/B LONGUM CAPSULE PO (10:09)
[2017-10-01] MEDS: MULTIVITAMINS THERAPEUTIC TAB PO (10:09)
[2017-10-01] MEDS: TAMSULOSIN (SR) 0.4 MG CAP PO (10:09)
[2017-10-01] MEDS: CITALOPRAM 20 MG TAB PO (10:09)
[2017-10-01] MEDS: CLOPIDOGREL 75 MG TAB PO (10:09)
[2017-10-01] MEDS: LINAGLIPTIN 5 MG TABLET PO (10:10)
[2017-10-01] MEDS: FINASTERIDE 5 MG TAB PO (10:10)
[2017-10-01] MEDS: FERROUS SULFATE (EC) 325 MG TAB PO (10:10)
[2017-10-01] MEDS: ASCORBIC ACID 500 MG TAB PO (10:10)
[2017-10-01] MEDS: DOCUSATE SODIUM 100 MG CAP PO (10:10)
[2017-10-01] MEDS: SODIUM HYPOCHLORITE 0.125% 473 ML BTL IRR ×2 (10:12→10:13)
[2017-10-01] MEDS: MUPIROCIN 2% 22 GM OINT TOP (10:14)
[2017-10-01] MEDS: NYSTATIN 30 GM POWDER BTL TOP (10:14)
[2017-10-01] MEDS: BETAMETHASONE/CLOTRIMAZOLE 15 GM CR TOP (10:14)
[2017-10-01] MEDS: GENTAMICIN 0.1% 15 GM OINT TOP (10:16)
== END 2017-10-01 14:00 | DRG 623 ==
LOC: VRC 19:56
PROVIDERS: Physical Medicine & Rehabilitation
PROC: F08Z1ZZ Dressing Techniques Treatment (ICD-10-PCS; 2017-09-15)
PROC: F07Z9ZZ Gait Training/Functional Ambulation Treatment (ICD-10-PCS; 2017-09-15)
PROC: F07Z5ZZ Bed Mobility Treatment (ICD-10-PCS; 2017-09-15)
PROC: F06Z6ZZ Communicative/Cognitive Integration Skills Treatment (ICD-10-PCS; 2017-09-15)
PROC: 0JBR0ZZ Excision of Left Foot Subcutaneous Tissue and Fascia, Open Approach (ICD-10-PCS; principal; 2017-09-26)
PROC: 0JBQ0ZZ Excision of Right Foot Subcutaneous Tissue and Fascia, Open Approach (ICD-10-PCS; 2017-09-26)
DX: E11.621 Type 2 diabetes mellitus with foot ulcer (principal); N39.0 Urinary tract infection, site not specified; G92 Toxic encephalopathy; N17.9 Acute kidney failure, unspecified; F33.9 Major depressive disorder, recurrent, unspecified; I13.0 Hypertensive heart and chronic kidney disease with heart failure and stage 1 through stage 4 chronic kidney disease, or unspecified chronic kidney disease; I11.0 Hypertensive heart disease with heart failure; I50.9 Heart failure, unspecified; E11.22 Type 2 diabetes mellitus with diabetic chronic kidney disease; I48.91 Unspecified atrial fibrillation; I25.10 Atherosclerotic heart disease of native coronary artery without angina pectoris; J44.9 Chronic obstructive pulmonary disease, unspecified; N40.0 Benign prostatic hyperplasia without lower urinary tract symptoms; E03.9 Hypothyroidism, unspecified; N18.9 Chronic kidney disease, unspecified; D63.8 Anemia in other chronic diseases classified elsewhere; R33.9 Retention of urine, unspecified; R21 Rash and other nonspecific skin eruption; R52 Pain, unspecified; I25.2 Old myocardial infarction; R26.9 Unspecified abnormalities of gait and mobility; E87.5 Hyperkalemia; Z89.432 Acquired absence of left foot; Z79.4 Long term (current) use of insulin; Z95.1 Presence of aortocoronary bypass graft; Z89.411 Acquired absence of right great toe
CPT/HCPCS: 80048; 80053; 81001; 82550; 82728; 82962; 83540; 83735; 84100; 85025; 87070; 87081; 87086; 90686; 92507; 92523; 94640; 97110; 97112; 97116; 97163; 97167; 97530; 97535; 97542